=== PATIENT | male | born 1980 | race Caucasian/White ===

== ENCOUNTER 2017-01-30 08:26 | Emergency (ER) | payer OTHER ==
[~2017-01-30] VITALS: Ht 193 cm; Wt 91.9 kg
[2017-01-30 08:32] VITALS: TEMP 36.6; Ht 193 cm; Wt 91.9 kg
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
--- NOTE | 2017-01-30 09:16 | DIAGNOSTIC IMAGING REPORT ---
RIGHT SHOULDER MIN 2 VIEWS ROUTINE CLINICAL HISTORY: Right shoulder pain COMPARISON: None. DISCUSSION: No fractures or dislocations of the proximal humerus are visualized. There is a right AC joint separation with superior elevation of the clavicle and widening of the coracoclavicular distance. IMPRESSION: 1. Right AC joint separation 2. No acute fractures Electronically signed by: Ej Mcmahon M.D. 01/30/2017 9:15 AM Dictated Date/Time: 01/30/2017 9:14 AM
[2017-01-30 09:42] VITALS: BP 126/90; PULSE 74; O2SAT 99
[2017-01-31] MEDS ORDERED: KETO10TA PO (15:47)
[2017-01-31] MEDS ORDERED: OXYC-57 PO (15:47)
== END 2017-01-30 09:43 | disposition home or self-care (01) ==
LOC: C.EDB 08:29 → C.EDA 09:43
DX: S43.101A Unspecified dislocation of right acromioclavicular joint, initial encounter (principal); V19.3XXA Pedal cyclist (driver) (passenger) injured in unspecified nontraffic accident, initial encounter

== ENCOUNTER → 2017-01-31 | Day surgery (SDC) | payer OTHER ==
[2017-01-30 12:29] VITALS: Ht 193 cm; Wt 90.9 kg
[~2017-01-31] VITALS: Ht 193 cm; Wt 90.9 kg
[~2017-01-31] MED LIST: ATROPINE SULFATE 0.1 MG/ML 5ML SYR IV PRN; BUPIVACAINE/EPINEPHRINE 0.25% 10 ML VIAL ONE; BUPIVACAINE/EPINEPHRINE 0.5% MPF 1:200,000 10 ML VIAL ONE; CEFAZOLIN 2000 MG/60 ML D5W IV SCH; DEXAMETHASONE SOD INJ 4 MG/ML VIAL ONE; EpHEDrine SULFATE INJ 50 MG/ML AMP IV PRN; EpINEphrine INJ 1MG/ML AMP 1 MG/ML AMP ONE; FENTANYL CITRATE INJ 50 MCG/1 ML 2 ML VIAL IV PRN; FENTANYL CITRATE INJ 50 MCG/1 ML 2 ML VIAL ONE; HYDROmorphone INJ 1 MG/ML SYR IV PRN; KETO10TA PO; LACTATED RINGER'S 1000ML 1,000 ML IV SCH; LIDOCAINE HCL 1% MPF 2 ML VIAL ONE; LIDOCAINE HCL 2% 2 ML VIAL (20MG/ML) ONE; MIDAZOLAM HCL 1 MG/ML 2ML VIAL ONE; ONDANSETRON INJ 2 MG/ML 2 ML VIAL IV PRN; ONDANSETRON INJ 2 MG/ML 2 ML VIAL ONE; OXYC-57 PO; OXYCODONE/ACETAMINOPHEN 5-325 TAB PO PRN; PROMETHAZINE HCL INJ 12.5 MG in SODIUM CHLORIDE 0.9% 50ML 50 ML IV PRN; PROPOFOL IV EMULSION 10 MG/ML 20 ML VIAL IV ONE; ROPIVACAINE 0.5% 5 MG/ML 30 ML VIAL ONE; SODIUM CHLORIDE 0.9% 1000ML 1,000 ML IV SCH
--- NOTE | 2017-01-31 11:41 | History & Physical Bridge - SC ---
H&P Re-Evaluation Bridge Note: I have examined the patient, reviewed the History & Physical and in the interval since the performance of the History & Physical I have noted the following changes of clinical significance: No changes noted
--- NOTE | 2017-01-31 15:36 | [facility] Post Operative Brief Note ---
Immediate Operative Summary Operative Date Jan 31, 2017. Pre-Operative Diagnosis Right Shoulder Dislocation AC Joint Post-Operative Diagnosis Same Procedure(s) Performed Right Shoulder Arthroscopic Acromioclavicular Joint Resection Surgeon Dr Coon [employer] Surgeon(s) Romaine Guevara PA-C Estimated Blood Loss 20ml Findings as above Specimens None Complication(s) None Disposition Recovery Room / PACU
[2017-01-31 15:47] VITALS: TEMP 36.5
--- NOTE | 2017-01-31 15:49 | Discharge Instructions-SurgCtr ---
Discharge Instructions Date of Service Jan 31, 2017. Visit Reason for Visit: Right Shoulder Dislocation Ac Joint Discharge Discharge Diagnosis / Problem: SAME ABOVE Discharge Goals Goal(s): Decrease discomfort, Improve function Activity Recommendations Activity Limitations: as noted below Lifting Limitations: until after follow-up appointment Shower/Bathe: tomorrow Anesthesia . Post Anesthesia Instructions: If you have had General Anesthesia or IV Sedation: * Do not drive today. * Resume driving when surgeon permits. * Do not make important decisions or sign legal documents today. * Call surgeon for: 1. Temperature elevations greater than 101 degrees F. 2. Uncontrollable pain. 3. Excessive bleeding. 4. Persistent nausea and vomiting. 5. Medication intolerance (nausea, vomiting or rash). * For nausea and vomiting use only clear liquids such as: tea, soda, bouillon until nausea subsides, then gradually increase diet as tolerated. * If you have any concerns or questions, call your surgeon's office. If physician is unavailable and it is an emergency, call 911 or go to the nearest emergency room. . Instructions / Follow-Up Instructions / Follow-Up MEDICATIONS: * Resume previous medications unless instructed otherwise by your surgeon. * Always take pain medication on a full stomach or with food to avoid upset stomach. * Do not drink alcohol or drive while taking narcotics. * Ibuprofen or Tylenol may be taken if narcotic not needed. SPECIAL CARE INSTRUCTIONS: __ None _X_ Keep extremity elevated and iced x 48 hours; apply ice 20-30 minutes 8-10 times/day. May remove at night. _X_ Sling _X_24 hrs/day __ Remove at night __ Shoulder Immobilizer __ 24 hrs/day __ Remove at night _X_ Dressing __ Maintain until seen in office, may shower with plastic over site _X_ Remove dressings in 24-48 hours and then may shower _X_ Cover incisions with band-aids after showering __ Do not remove steri-strips Call physician if chills or temperature rises above 102 degrees or pain unrelieved by prescribed pain medications at . . Diet Recommendations Home Diet: no limitations Fluid Restriction: None Procedures Procedures Performed: Right Shoulder Arthroscopic Acromioclavicular Joint Resection Pending Studies Studies pending at discharge: no Work Instructions Return To Work: after follow-up (OR IF YOU CAN RETURN WITH NO USE OF RIGHT ARM AND WHILE IN THE SLING ) Lifting Limitations: NO LIFTING WITH RIGHT ARM Medical Emergencies . Who to Call and When: Medical Emergencies: If at any time you feel your situation is an emergency, please call 911 immediately. . Non-Emergent Contact Non-Emergency issues call your: Primary Care Provider Call Non-Emergent contact if: you have a fever, temperature is above 101.5 . . "Provider Documentation" section prepared by Uvaldo Guevara. .
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
--- NOTE | 2017-01-31 16:17 | Anesthesia Progress Nt - [facility] ---
Anesthesia Post Op Note Date & Time Jan 31, 2017 at 16:16 Vital Signs Pain Intensity: 0 Vital Signs Past 12 Hours Date Time Temp Pulse Resp B/P (MAP) Pulse Ox O2 Delivery O2 Flow Rate FiO2 01/31/17 15:47 36.5 72 16 124/79 (94) 100 Room Air 01/31/17 14:12 82 0 97 01/31/17 14:12 71 0 96 01/31/17 14:11 72 0 96 01/31/17 14:11 72 01/31/17 14:10 18 01/31/17 14:10 131/89 01/31/17 14:08 76 0 96 01/31/17 14:08 77 01/31/17 14:07 76 01/31/17 14:07 72 0 97 01/31/17 14:05 18 01/31/17 14:05 129/81 01/31/17 14:01 74 01/31/17 14:01 75 0 97 01/31/17 14:00 131/83 01/31/17 14:00 18 01/31/17 13:55 78 0 130/85 97 01/31/17 13:55 16 01/31/17 13:55 76 0 96 01/31/17 13:54 84 01/31/17 13:54 87 0 96 01/31/17 13:50 127/86 01/31/17 13:50 18 01/31/17 13:48 81 01/31/17 13:48 82 0 98 01/31/17 13:46 73 0 98 01/31/17 13:46 76 0 97 01/31/17 13:45 18 01/31/17 13:45 142/84 01/31/17 13:40 85 19 123/84 98 01/31/17 13:40 86 11 98 01/31/17 13:35 85 01/31/17 13:35 84 28 129/83 100 01/31/17 13:34 134/84 01/31/17 13:25 0 01/31/17 13:25 0 01/31/17 13:20 0 01/31/17 13:10 0 01/31/17 13:10 0 01/31/17 13:05 0 01/31/17 12:55 0 01/31/17 12:55 0 01/31/17 12:50 0 01/31/17 12:40 0 01/31/17 12:40 0 01/31/17 12:35 0 01/31/17 12:30 0 01/31/17 12:25 0 01/31/17 12:25 0 01/31/17 12:15 0 01/31/17 12:10 89 0 97 01/31/17 12:10 81 0 99 01/31/17 12:00 74 0 100 01/31/17 12:00 74 01/31/17 11:55 72 0 95 01/31/17 11:55 74 0 100 01/31/17 11:01 36.3 74 16 131/85 (100) 99 Room Air Notes Mental Status: alert / awake / arousable, participated in evaluation Pt Amnestic to Procedure: Yes Nausea / Vomiting: adequately controlled Pain: adequately controlled Airway Patency, RR, SpO2: stable & adequate BP & HR: stable & adequate Hydration State: stable & adequate Anesthetic Complications: no major complications apparent Pt doing well. Pain well controlled by ISB. No n/v. VSS.
[2017-01-31 16:21] VITALS: BP 127/83; PULSE 72; O2SAT 99
--- NOTE | 2017-02-05 08:00 | DIAGNOSTIC IMAGING REPORT ---
INTRAOPERATIVE RADIOGRAPH CLINICAL HISTORY: Right shoulder arthroscopy. Fluoroscopy time: 2 seconds. FINDINGS: A single spot fluoroscopic image of the right shoulder is presented. IMPRESSION: Intraoperative view of the right shoulder. See operative report for detailed findings. Electronically signed by: Diego Gold M.D. 01/31/2017 4:17 PM Dictated Date/Time: 01/31/2017 4:16 PM
== END | disposition home or self-care (01) ==
LOC: X.SURG 10:50
PROVIDERS: ATTEND Orthopaedic Surgery
DX: S43.101A Unspecified dislocation of right acromioclavicular joint, initial encounter (principal); V18.2XXA Unspecified pedal cyclist injured in noncollision transport accident in nontraffic accident, initial encounter